=== PATIENT | female | born 1990 | race Caucasian/White ===

== ENCOUNTER 2018-10-09 18:37 | Emergency (ER) | payer BC ==
[2018-10-09 18:50] VITALS: BP 122/82
[2018-10-09] MEDS ORDERED: Ondansetron 4 MG/2 ML SDV IVPUSH ONE (19:32)
[2018-10-09] MEDS ORDERED: HYDROmorphone 1 MG/ML Syringe IVPUSH STA (19:32)
[2018-10-09] MEDS ORDERED: Sodium Chloride 0.9% 1,000 ML IV SCH (19:45)
--- NOTE | 2018-10-09 20:13 | EDM.PDOC ---
ED HPI GENERAL MEDICAL PROBLEM - General Chief Complaint: Abdominal Pain Stated Complaint: ABDOMINAL PAIN Time Seen by Provider: 10/09/18 18:53 Source of Information: Reports: Patient, RN Notes Reviewed History Limitations: Reports: No Limitations - History of Present Illness INITIAL COMMENTS - FREE TEXT/NARRATIVE: Patient is a 28 year old female who presents to the ED for the evaluation of diffuse abdominal pain. She notes that this pain started at 12:30pm and has not gone away since. She notes a history of prior gastric bypass () and recurrent episodes of crampy, abdominal pain for 3-4 months now that she has been prescribed dicyclomine for. She did take a dicyclomine and this did not provide much relief. She states that these recurrent episodes last around 4 hours and then usually go away. She rates her pain at a 6/10. She states that she feels bloated, but did have a regular BM this morning. She states that she also started weight watchers recently and notes that she ate cauliflower last night and again for lunch. For breakfast today, she had 6oz of protein shake, some lunch meat and an apple. For lunch she had a salad with some cheesy cauliflower, lunch meat and 6 oz protein shake. She does admit to nausea, but no vomiting or diarrhea. She notes shortness of breath but attributes this to having tense belly pain for over 6 hours. She denies any chance of . She states the pain comes and goes in waves. The pain now is located mostly in her upper abdomen. She does still have her gallbladder and her appendix. She denies any history of gallbladder issues. 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) Other Treatments STOCK CONTROLLER: simethicone, bentyl entire lower abdomen Pain Score (Numeric/FACES): 6 - Related Data Allergies Allergy/AdvReac Type Severity Reaction Status Date / Time codeine Allergy Other Verified 10/09/18 18:50 Home Meds: Home Meds Albuterol Sulfate [Proair Hfa] 1 puff INH Q6H PRN 04/08/16 [History] FLUoxetine [PROzac] 40 mg PO DAILY 04/08/16 [History] LORazepam 0.5 mg PO Q6H PRN 04/08/16 [History] Omeprazole 20 mg PO DAILY 04/08/16 [History] Zolpidem Tartrate [Ambien] 5 mg PO DAILY PRN 04/08/16 [History] Dicyclomine HCl [Bentyl] 10 mg PO ASDIRECTED 10/09/18 [History] Fluticasone/Salmeterol [Advair 250-50 Diskus] 1 dose INH BID 10/09/18 [History] Pedi Multivit No.17 W-Fluoride [Multivit-Fluoride 1 mg Tab Chw] 1 mg PO DAILY [History] metFORMIN [Glucophage] 1,000 mg PO ACBREAKFAST 10/09/18 [History] Past Medical History HEENT History: Reports: Allergic Rhinitis Respiratory History: Reports: Asthma Gastrointestinal History: Reports: 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: Reports: Polycystic Ovaries Psychiatric History: Reports: Anxiety, Depression Other Dermatologic History: acne - Past Surgical History GI Surgical History: Reports: Bariatric Procedure Social & Family History - Family History Family Medical History: Noncontributory Cardiac: Reports: Hypertension Oncologic: Reports: Cervix, Prostate - Tobacco Use Smoking Status *Q: Never Smoker - Caffeine Use Caffeine Use: Reports: None - Recreational Drug Use Recreational Drug Use: No ED ROS GENERAL - Review of Systems Review Of Systems: See Below Constitutional: Reports: No Symptoms HEENT: Reports: No Symptoms Respiratory: Reports: Shortness of Breath (due to abdomen pain) Cardiovascular: Reports: No Symptoms Endocrine: Reports: No Symptoms GI/Abdominal: Reports: Abdominal Pain (diffuse), Constipation, Nausea. Denies: Diarrhea, Distension, Vomiting : Reports: No Symptoms Musculoskeletal: Reports: No Symptoms Skin: Reports: No Symptoms Neurological: Reports: No Symptoms Psychiatric: Reports: No Symptoms Hematologic/Lymphatic: Reports: No Symptoms Immunologic: Reports: No Symptoms ED EXAM, GI/ABD - Physical Exam Exam: See Below Exam Limited By: No Limitations General Appearance: Alert, WD/WN, Mild Distress (pt appears to be in pain.) Ears: Normal External Exam Nose: Normal Inspection Throat/Mouth: Normal Inspection, Normal Oropharynx, No Airway Compromise Head: Atraumatic, Normocephalic Neck: Normal Inspection Respiratory/Chest: No Respiratory Distress, Lungs Clear, Normal Breath Sounds, No Accessory Muscle Use, Chest Non-Tender Cardiovascular: Normal Peripheral Pulses, Regular Rate, Rhythm, No Murmur GI/Abdominal Exam: Normal Bowel Sounds, Soft, No Distention, No Mass, Tender ( entire upper abdomen). No: Guarding, Rigid, Rebound Back Exam: Normal Inspection Extremities: Normal Inspection, Normal Capillary Refill Neurological: Alert, Oriented, Normal Cognition, No Motor/Sensory Deficits Psychiatric: Normal Affect, Normal Mood Skin Exam: Warm, Dry, Intact, Normal Color, No Rash Course - Vital Signs Last Recorded V/S: Last Vital Signs Temp 97.7 F 10/09/18 18:40 Pulse 62 10/09/18 18:40 Resp 18 10/09/18 18:40 BP 122/82 10/09/18 18:40 Pulse Ox 100 10/09/18 18:40 - Orders/Labs/Meds Orders: Active Orders 24 hr Category Date Time Status Sodium Chloride 0.9% [Normal Saline] 1,000 ml Med 10/09/18 19:45 Ordered IV ASDIRECTED Medication Orders Sodium Chloride (Normal Saline) 1,000 mls @ 999 mls/hr IV ASDIRECTED RAVI Last Admin: 10/09/18 19:47 Dose: 999 mls/hr Labs: Laboratory Tests 10/09/18 10/09/18 Range/Units 19:44 19:44 WBC 10.00 (3.98-10.04) K/mm3 RBC 4.83 (3.98-5.22) M/mm3 Hgb 14.8 (11.2-15.7) gm/L Hct 42.6 (34.1-44.9) % MCV 88.2 (79.4-94.8) fl MCH 30.6 (25.6-32.2) pg MCHC 34.7 (32.2-35.5) g/dl RDW Std Deviation 41.0 (36.4-46.3) fL Plt Count 294 (182-369) K/mm3 MPV 10.2 (9.4-12.3) fl Neutrophils % (Manual) 73 H (40-60) % Band Neutrophils % 0 (0-10) % Lymphocytes % (Manual) 21 (20-40) % Atypical Lymphs % 0 % Monocytes % (Manual) 4 (2-10) % Eosinophils % (Manual) 1 (0.7-5.8) % Basophils % (Manual) 1 (0.1-1.2) Platelet Estimate Adequate RBC Morph Comment Normal Sodium 137 (136-145) mEq/L Potassium 4.2 (3.5-5.1) mEq/L Chloride 100 (98-107) mEq/L Carbon Dioxide 24 (21-32) mEq/L Anion Gap 17.2 H (5-15) BUN 16 (7-18) mg/dL Creatinine 0.8 (0.55-1.02) mg/dL Est Cr Clr Drug Dosing 81.33 mL/min Estimated GFR (MDRD) > 60 (>60) mL/min BUN/Creatinine Ratio 20.0 H (14-18) Glucose 85 (74-106) mg/dL Calcium 10.1 (8.5-10.1) mg/dL Total Bilirubin 0.6 (0.2-1.0) mg/dL AST 21 (15-37) U/L ALT 25 (14-59) U/L Alkaline Phosphatase 69 (46-116) U/L Total Protein 8.2 (6.4-8.2) g/dl Albumin 4.4 (3.4-5.0) g/dl Globulin 3.8 gm/dL Albumin/Globulin Ratio 1.2 (1-2) Lipase 228 (73-393) U/L Meds: Medications Generic Name Dose Route Start Last Admin Trade Name Freq PRN Reason Stop Dose Admin Sodium Chloride 1,000 mls @ 999 mls/hr 10/09/18 19:45 10/09/18 19:47 Normal Saline IV 999 mls/hr ASDIRECTED RAVI Administration Discontinued Medications Generic Name Dose Route Start Last Admin Trade Name Freq PRN Reason Stop Dose Admin Hydromorphone HCl 0.5 mg 10/09/18 19:32 10/09/18 19:49 Dilaudid IVPUSH 10/09/18 19:33 0.5 mg ONETIME STA Administration Ondansetron HCl 4 mg 10/09/18 19:32 10/09/18 19:45 Zofran IVPUSH 10/09/18 19:33 4 mg ONETIME ONE Administration - Re-Assessments/Exams Free Text/Narrative Re-Assessment/Exam: 10/09/18 19:30 Pt presents to the ED for the evaluation of abdominal pain. This is likely due to constipation from recent increase in intake of fibrous vegetables. Abdominal x-rays have been obtained and do show an increased amount of stool in the intestines. Have ordered 0.5 mg IV dilaudid, 4mg IV zofran, and IV bolus of fluids, along with a CBC, CMP, lipase for further evaluation. 10/09/18 20:30 Labs are back and are WNL. She is still feeling a fair amount of pain, will order another 0.5mg dilaudid and send her home with a bottle of mag citrate. Diet recommendations were made to help her through the increased intake of vegetables. Departure - Departure Time of Disposition: 20:31 Disposition: Home, Self-Care 01 Condition: Fair Clinical Impression: Constipation Qualifiers: Constipation type: other constipation type Qualified Code(s): K59.09 - Other constipation - Discharge Information *PRESCRIPTION DRUG MONITORING PROGRAM REVIEWED*: No *COPY OF PRESCRIPTION DRUG MONITORING REPORT IN PATIENT HELADIO: No Instructions: Constipation, Adult, [id number] Referrals: Nubia Dempsey NP [Primary Care Provider] - Forms: ED Department Discharge Additional Instructions: You have been evaluated in the ED for abdominal pain. Your labs are within normal limits, and your abdominal x-ray shows that you are constipated. You have been provided 1 bottle of magnesium citrate, please drink 1/4 of a bottle to see if you have results in an hour or so, then increase intake by 1/4 bottle every hour, if needed. Recommend increased fluid intake with increased fibrous vegetable intake. You may also try to take miralax to help soften the stool and promote bowel regularity. Please return to the ED if your symptoms should worsen or change. - My Orders Last 24 Hours: My Active Orders 10/09/18 19:45 Sodium Chloride 0.9% [Normal Saline] 1,000 ml IV ASDIRECTED - Assessment/Plan Last 24 Hours: My Active Orders 10/09/18 19:45 Sodium Chloride 0.9% [Normal Saline] 1,000 ml IV ASDIRECTED
[2018-10-09] MEDS ORDERED: HYDROmorphone 1 MG/ML Syringe IVPUSH ONE (20:36)
[2018-10-09] MEDS ORDERED: Magnesium Citrate Solution 296 ML Bottle PO ONE (20:37)
--- NOTE | 2018-10-13 12:09 | CR ---
Abdomen: Supine and upright views of the abdomen were obtained. Comparison: No previous study. Surgical anastomotic sutures are seen within the left upper abdomen. Bowel gas pattern is felt to be within normal limits. No free air is seen. No abnormal calcifications or discrete soft tissue abnormality is seen. Impression: 1. Previous upper abdominal surgery. 2. Nothing acute is appreciated on two-view abdominal x-ray. Diagnostic code #2
== END 2018-10-09 20:59 | disposition home or self-care (01) ==
LOC: JD.ED 18:37
DX: K59.09 Other constipation (principal); J45.909 Unspecified asthma, uncomplicated; K21.9 Gastro-esophageal reflux disease without esophagitis; F41.9 Anxiety disorder, unspecified; F32.9 Major depressive disorder, single episode, unspecified; Z88.5 Allergy status to narcotic agent; Z79.899 Other long term (current) drug therapy
CPT/HCPCS: 36415; 74019; 80053; 83690; 85007; 85027; 96361; 96374; 96375; 96376; 99284; A9270; J1170; J2405; J7040